=== PATIENT | male | born 1965 | race Caucasian/White ===

== ENCOUNTER 2016-07-03 14:13 | Emergency (ER) | payer SELFPAY ==
--- NOTE | 2016-07-03 17:10 | RAD ---
4 VIEW LEFT KNEE SERIES: Date: 07/03/16 INDICATION: Left knee pain for 7 days. No injury. FINDINGS: There is mild joint capsular distention. No fracture or dislocation. Minute osteophytosis. Minimal e nthesopathy at the superior aspect of the patella present. IMPRESSION: 1. No acute osseous abnormality of the left knee. 2. Mild joint capsular distention. 3. Minimal osteoarthritis. POS: [facility]
== END 2016-07-03 17:00 | disposition home or self-care (01) ==
LOC: MADERS 14:13
DX: S86.912A Strain of unspecified muscle(s) and tendon(s) at lower leg level, left leg, initial encounter (principal); F17.210 Nicotine dependence, cigarettes, uncomplicated; X58.XXXA Exposure to other specified factors, initial encounter